=== PATIENT | female | born 1965 | race Caucasian/White ===

== ENCOUNTER 2021-04-05 17:39 | Emergency (ER) | payer SELFPAY ==
[~2021-04-05 17:39] MED LIST: MACROBID 100 M100 MG PO
[2021-04-05] MEDS ORDERED: ZOFRAN 4 MG TAB4 MG PO (21:28)
== END 2021-04-05 21:40 | disposition home or self-care (01) ==
LOC: ER1 17:39
DX: R52 Pain, unspecified (principal); R05 Cough; R11.0 Nausea; Z20.822 Contact with and (suspected) exposure to COVID-19; Z88.1 Allergy status to other antibiotic agents; Z90.710 Acquired absence of both cervix and uterus
CPT/HCPCS: 0240U; 81001; 99283